=== PATIENT | male | born 1965 | race African-American/Black ===

== ENCOUNTER 2019-11-16 22:13 | Emergency (ER) | payer BC, SELFPAY ==
[2019-11-16] MEDS ORDERED: Dexamethasone 10 MG/ML VIAL ONE ×2 (22:37→22:38)
[2019-11-16] MEDS ORDERED: Ketorolac Tromethamine 30 MG/ML VIAL ONE (22:37)
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
== END 2019-11-16 23:45 | disposition home or self-care (01) ==
LOC: ERS 22:13
DX: S19.9XXA Unspecified injury of neck, initial encounter (principal); Y04.8XXA Assault by other bodily force, initial encounter
CPT/HCPCS: 70450; 70498; 96374; J1100; J1885

== ENCOUNTER 2020-10-27 10:16 | Emergency (ER) | payer OTHER, SELFPAY ==
[2020-10-27] MEDS ORDERED: Ketorolac Tromethamine 30 MG/ML VIAL ONE (10:41)
[2020-10-27] MEDS ORDERED: Dexamethasone 4 MG TAB ONE (10:41)
[2020-10-27 17:28] LABS: SARS-CoV-2 PCR by NAA DETECTED (NotDetected)
== END 2020-10-27 11:08 | disposition home or self-care (01) ==
LOC: ERS 10:16
DX: U07.1 COVID-19 (principal); J45.901 Unspecified asthma with (acute) exacerbation; J02.9 Acute pharyngitis, unspecified
CPT/HCPCS: 96372; 99284; J1885; J8540; U0003; U0005

== ENCOUNTER 2020-10-29 07:24 | Emergency (ER) | payer SELFPAY ==
[2020-10-29] MEDS ORDERED: Ketorolac Tromethamine 30 MG/ML VIAL ONE (07:45)
== END 2020-10-29 08:25 | disposition home or self-care (01) ==
LOC: ERS 07:24
DX: U07.1 COVID-19 (principal)
CPT/HCPCS: 96372; 96374; J0500; J1885

== ENCOUNTER 2020-11-01 20:09 | Inpatient (IN) | payer SELFPAY ==
[2020-11-01] MEDS ORDERED: Dexamethasone 10 MG/ML VIAL ONE (21:46)
[2020-11-01 21:47] LABS: Hemoglobin 15.8 g/dL (14.0-18.0); Mean Corpuscular Hemoglobin 28.2 pg (27.0-31.0); Mean Corpuscular Volume 88.2 fL (78.0-98.0); White Blood Cell (WBC) Count 6.8 thou/uL (4.8-10.8)
[2020-11-01 21:48] LABS: #Monocytes 0.3 thou/uL (0.11-0.59); #Neutrophils 5.5 thou/uL (1.40-6.50); %Basophils 0.2 % (0.0-1.0); %Eosinophils 0.1 % (0.0-10.0); %Monocytes 4.4 % (0.0-10.0); %Neutrophils 80.3 % (42.0-75.0); Mean Platelet Volume 6.3 fL (7.4-10.4); Platelet Count 249 thou/uL (130-400)
[2020-11-01 22:28] LABS: Albumin 3.4 g/dL (3.5-5.0); Anion Gap 14 mmol/L (10-20); BUN (Urea Nitrogen) 14 mg/dL (8.4-25.7); Bilirubin, Total 0.6 mg/dL (0.2-1.2); Calc. Creatinine Clearance 0 mL/min (70-130); Calcium 8.2 mg/dL (7.8-10.44); Carbon Dioxide 24 mmol/L (22-29); Chloride 100 mmol/L (98-107); Globulin 3.3 g/dL (2.4-3.5); Glucose 111 mg/dL (70-105); Potassium 4.1 mmol/L (3.5-5.1); Protein, Total 6.7 g/dL (6.0-8.3); Sodium 134 mmol/L (136-145)
[2020-11-01 22:29] LABS: ALT (SGPT) 92 U/L (8-55); AST (SGOT) 83 U/L (5-34); Alkaline Phosphatase 29 U/L (40-110)
[2020-11-01] MEDS ORDERED: Ketorolac Tromethamine 30 MG/ML VIAL ONE (23:09)
[2020-11-02] MEDS ORDERED: Ondansetron ODT 4 MG TAB PO PRN (07:18)
[2020-11-02] MEDS ORDERED: Ondansetron PF 4 MG/2 ML Vial IVP PRN (07:18)
[2020-11-02] MEDS ORDERED: Acetaminophen 325 MG TAB PO PRN (07:18)
[2020-11-02 09:53] VITALS: BMI 30.3
[2020-11-02] MEDS ORDERED: Dexamethasone 10 MG in Sodium Chloride 0.9% 50 ML IVPB SCH (10:21)
[2020-11-02] MEDS ORDERED: Thiamine 100 MG TAB PO SCH (10:30)
[2020-11-02] MEDS ORDERED: Enoxaparin Sodium 40 MG/0.4 ML SYRINGE SC SCH (11:00)
[2020-11-02] MEDS: Dexamethasone 10 MG/ML VIAL SLOW IVP SCH (11:05)
[2020-11-02 11:06] LABS: Lactic Acid 1.1 mmol/L (0.5-2.2)
[2020-11-02] MEDS: Cholecalciferol 1,000 UNITS (25 MCG) TAB PO SCH (11:06)
[2020-11-02] MEDS: Ascorbic Acid 500 mg Chewable Tablet PO SCH (11:06)
[2020-11-02] MEDS: Zinc Sulfate 220 MG CAP PO SCH (11:06)
[2020-11-02 11:11] LABS: CRP (Inflammatory) 10.78 mg/dL (= or < 0.5)
[2020-11-02] MEDS ORDERED: REMDESIVIR 200 MG in Sodium Chloride 0.9% 250 ML 210 ML IV SCH (12:30)
[2020-11-02] MEDS: Famotidine/PF 20 mg/2ml Vial SLOW IVP SCH (20:36)
[2020-11-03] MEDS: Cholecalciferol 1,000 UNITS (25 MCG) TAB PO SCH (08:03)
[2020-11-03] MEDS: Zinc Sulfate 220 MG CAP PO SCH (08:03)
[2020-11-03] MEDS: Ascorbic Acid 500 mg Chewable Tablet PO SCH (08:03)
[2020-11-03] MEDS: Enoxaparin Sodium 40 MG/0.4 ML SYRINGE SC SCH (08:03)
[2020-11-03] MEDS: Famotidine/PF 20 mg/2ml Vial SLOW IVP SCH ×2 (08:03→21:16)
[2020-11-03] MEDS: Dexamethasone 10 MG/ML VIAL SLOW IVP SCH (08:03)
[2020-11-03] MEDS: REMDESIVIR 100 MG in Sodium Chloride 0.9% 250 ML 230 ML IV SCH (08:04)
[2020-11-03] MEDS: Thiamine 100 MG TAB PO SCH (08:04)
[2020-11-04] MEDS: Famotidine/PF 20 mg/2ml Vial SLOW IVP SCH ×2 (08:45→20:34)
[2020-11-04] MEDS: Zinc Sulfate 220 MG CAP PO SCH (08:45)
[2020-11-04] MEDS: Cholecalciferol 1,000 UNITS (25 MCG) TAB PO SCH (08:45)
[2020-11-04] MEDS: Thiamine 100 MG TAB PO SCH (08:45)
[2020-11-04] MEDS: Enoxaparin Sodium 40 MG/0.4 ML SYRINGE SC SCH (08:45)
[2020-11-04] MEDS: Ascorbic Acid 500 mg Chewable Tablet PO SCH (08:45)
[2020-11-04] MEDS: REMDESIVIR 100 MG in Sodium Chloride 0.9% 250 ML 230 ML IV SCH (08:46)
[2020-11-04] MEDS: Dexamethasone 10 MG/ML VIAL SLOW IVP SCH (08:46)
[2020-11-04] MEDS ORDERED: Ondansetron PF 4 MG/2 ML Vial IVP PRN (11:05)
[2020-11-05 08:36] LABS: ALT (SGPT) 151 U/L (8-55); AST (SGOT) 53 U/L (5-34); Albumin 3.4 g/dL (3.5-5.0); Alkaline Phosphatase 36 U/L (40-110); Anion Gap 15 mmol/L (10-20); BUN (Urea Nitrogen) 18 mg/dL (8.4-25.7); Bilirubin, Total 0.7 mg/dL (0.2-1.2); CRP (Inflammatory) 2.65 mg/dL (= or < 0.5); Calc. Creatinine Clearance 103 mL/min (70-130); Calcium 8.6 mg/dL (7.8-10.44); Carbon Dioxide 24 mmol/L (22-29); Chloride 97 mmol/L (98-107); Globulin 3.3 g/dL (2.4-3.5); Glucose 91 mg/dL (70-105); Potassium 4.5 mmol/L (3.5-5.1); Protein, Total 6.7 g/dL (6.0-8.3); Sodium 131 mmol/L (136-145)
[2020-11-05] MEDS: REMDESIVIR 100 MG in Sodium Chloride 0.9% 250 ML 230 ML IV SCH (09:02)
[2020-11-05] MEDS: Dexamethasone 10 MG/ML VIAL SLOW IVP SCH (09:02)
[2020-11-05] MEDS: Famotidine/PF 20 mg/2ml Vial SLOW IVP SCH ×2 (09:02→21:11)
[2020-11-05] MEDS: Zinc Sulfate 220 MG CAP PO SCH (09:03)
[2020-11-05] MEDS: Ascorbic Acid 500 mg Chewable Tablet PO SCH (09:03)
[2020-11-05] MEDS: Thiamine 100 MG TAB PO SCH (09:03)
[2020-11-05] MEDS: Cholecalciferol 1,000 UNITS (25 MCG) TAB PO SCH (09:03)
[2020-11-05] MEDS: Enoxaparin Sodium 40 MG/0.4 ML SYRINGE SC SCH (09:04)
[2020-11-05] MEDS ORDERED: Iopamidol-370 76% 500 ML 1 ML ONE (11:41)
[2020-11-06] MEDS ORDERED: Acetaminophen 325 MG TAB PO PRN (00:26)
[2020-11-06] MEDS: Benzonatate 100 MG CAP PO PRN ×2 (00:49→20:48)
[2020-11-06] MEDS: Famotidine/PF 20 mg/2ml Vial SLOW IVP SCH ×2 (08:55→20:49)
[2020-11-06] MEDS: REMDESIVIR 100 MG in Sodium Chloride 0.9% 250 ML 230 ML IV SCH (08:55)
[2020-11-06] MEDS: Cholecalciferol 1,000 UNITS (25 MCG) TAB PO SCH (08:56)
[2020-11-06] MEDS: Enoxaparin Sodium 40 MG/0.4 ML SYRINGE SC SCH (08:56)
[2020-11-06] MEDS: Zinc Sulfate 220 MG CAP PO SCH (08:56)
[2020-11-06] MEDS: Ascorbic Acid 500 mg Chewable Tablet PO SCH (08:56)
[2020-11-06] MEDS: guaiFENesin/DM ER PO SCH ×2 (08:56→20:48)
[2020-11-06] MEDS: Thiamine 100 MG TAB PO SCH (08:56)
[2020-11-06] MEDS: Dexamethasone 10 MG/ML VIAL SLOW IVP SCH (08:56)
[2020-11-06 12:11] LABS: ALT (SGPT) 115 U/L (8-55); AST (SGOT) 41 U/L (5-34); Albumin 3.3 g/dL (3.5-5.0); Alkaline Phosphatase 36 U/L (40-110); Anion Gap 14 mmol/L (10-20); BUN (Urea Nitrogen) 20 mg/dL (8.4-25.7); Bilirubin, Total 0.7 mg/dL (0.2-1.2); CRP (Inflammatory) 5.02 mg/dL (= or < 0.5); Calc. Creatinine Clearance 112 mL/min (70-130); Calcium 8.5 mg/dL (7.8-10.44); Carbon Dioxide 23 mmol/L (22-29); Chloride 99 mmol/L (98-107); Globulin 3.2 g/dL (2.4-3.5); Glucose 109 mg/dL (70-105); Potassium 4.5 mmol/L (3.5-5.1); Protein, Total 6.5 g/dL (6.0-8.3); Sodium 131 mmol/L (136-145)
[2020-11-07] MEDS: Famotidine/PF 20 mg/2ml Vial SLOW IVP SCH ×2 (08:47→20:25)
[2020-11-07] MEDS: Dexamethasone 10 MG/ML VIAL SLOW IVP SCH (08:47)
[2020-11-07] MEDS: Ascorbic Acid 500 mg Chewable Tablet PO SCH (08:47)
[2020-11-07] MEDS: Cholecalciferol 1,000 UNITS (25 MCG) TAB PO SCH (08:48)
[2020-11-07] MEDS: Zinc Sulfate 220 MG CAP PO SCH (08:48)
[2020-11-07] MEDS: guaiFENesin/DM ER PO SCH ×2 (08:48→20:25)
[2020-11-07] MEDS: Thiamine 100 MG TAB PO SCH (08:48)
[2020-11-07] MEDS: Enoxaparin Sodium 40 MG/0.4 ML SYRINGE SC SCH (08:49)
[2020-11-08 07:50] LABS: ALT (SGPT) 70 U/L (8-55); AST (SGOT) 23 U/L (5-34); Albumin 3.1 g/dL (3.5-5.0); Alkaline Phosphatase 35 U/L (40-110); Anion Gap 14 mmol/L (10-20); BUN (Urea Nitrogen) 21 mg/dL (8.4-25.7); Bilirubin, Total 0.6 mg/dL (0.2-1.2); Calc. Creatinine Clearance 108 mL/min (70-130); Calcium 8.4 mg/dL (7.8-10.44); Carbon Dioxide 21 mmol/L (22-29); Chloride 100 mmol/L (98-107); Globulin 3.2 g/dL (2.4-3.5); Glucose 87 mg/dL (70-105); Potassium 4.9 mmol/L (3.5-5.1); Protein, Total 6.3 g/dL (6.0-8.3); Sodium 130 mmol/L (136-145)
[2020-11-08 08:24] VITALS: BP 129/85; TEMP 97.4
[2020-11-08] MEDS: Dexamethasone 10 MG/ML VIAL SLOW IVP SCH (11:46)
[2020-11-08] MEDS: Enoxaparin Sodium 40 MG/0.4 ML SYRINGE SC SCH (11:46)
[2020-11-08] MEDS: Ascorbic Acid 500 mg Chewable Tablet PO SCH (11:46)
[2020-11-08] MEDS: Famotidine/PF 20 mg/2ml Vial SLOW IVP SCH (11:46)
[2020-11-08] MEDS: Cholecalciferol 1,000 UNITS (25 MCG) TAB PO SCH (11:46)
[2020-11-08] MEDS: Zinc Sulfate 220 MG CAP PO SCH (11:47)
[2020-11-08] MEDS: guaiFENesin/DM ER PO SCH (11:47)
[2020-11-08] MEDS: Thiamine 100 MG TAB PO SCH (11:47)
== END 2020-11-08 14:39 | disposition home or self-care (01) | DRG 177 ==
LOC: ERS 20:09 → T4-B 11-02 00:49
PROVIDERS: ADMIT Internal Medicine; ATTEND Internal Medicine
PROC: XW033E5 Introduction of Remdesivir Anti-infective into Peripheral Vein, Percutaneous Approach, New Technology Group 5 (ICD-10-PCS; principal; 2020-11-02)
PROC: 8E0ZXY6 Isolation (ICD-10-PCS; 2020-11-02)
DX: U07.1 COVID-19 (principal); J12.82 Pneumonia due to coronavirus disease 2019; J96.01 Acute respiratory failure with hypoxia; R10.9 Unspecified abdominal pain; Z79.899 Other long term (current) drug therapy
CPT/HCPCS: 36415; 71045; 71275; 74018; 80053; 82550; 83605; 83690; 84484; 85025; 85379; 86140; 93005; 96374; 96375; J1100; J1650; J1885; J7050; Q9967; S0028

== ENCOUNTER 2021-06-08 23:03 | Emergency (ER) | payer SELFPAY ==
[2021-06-08] MEDS ORDERED: Meclizine HCl 25 MG TAB ONE (23:22)
[2021-06-08] MEDS ORDERED: Ondansetron PF 4 MG/2 ML Vial ONE (23:22)
[2021-06-08 23:52] LABS: #Basophils 0.1 thou/uL (0.0-0.2); #Eosinphils 0.1 thou/uL (0.0-0.7); #Monocytes 0.7 thou/uL (0.11-0.59); #Neutrophils 3.8 thou/uL (1.40-6.50); %Basophils 1.2 % (0.0-1.0); %Eosinophils 1.7 % (0.0-10.0); %Lymphocytes 30.3 % (21.0-51.0); %Monocytes 10.1 % (0.0-10.0); %Neutrophils 56.8 % (42.0-75.0); Hemoglobin 14.7 g/dL (14.0-18.0); Mean Corpuscular HGB CONC 33.3 g/dL (32.0-36.0); Mean Corpuscular Hemoglobin 30.3 pg (27.0-31.0); Mean Corpuscular Volume 90.9 fL (78.0-98.0); Mean Platelet Volume 6.5 fL (7.4-10.4); Platelet Count 241 thou/uL (130-400); RBC Distribution Width 12.6 % (11.5-14.5); Red Blood Cell (RBC) Count 4.84 mill/uL (4.70-6.10); White Blood Cell (WBC) Count 6.7 thou/uL (4.8-10.8)
[2021-06-08] MEDS ORDERED: cefTRIAXone\\ROCEPHIN 500 MG VIAL ONE (23:57)
[2021-06-09 00:13] LABS: ALT (SGPT) 24 U/L (8-55); AST (SGOT) 34 U/L (5-34); Albumin 4.1 g/dL (3.5-5.0); Alkaline Phosphatase 30 U/L (40-110); Anion Gap 12 mmol/L (10-20); BUN (Urea Nitrogen) 7 mg/dL (8.4-25.7); Bilirubin, Total 0.6 mg/dL (0.2-1.2); Calc. Creatinine Clearance 0 mL/min (70-130); Carbon Dioxide 22 mmol/L (22-29); Chloride 105 mmol/L (98-107); Globulin 2.5 g/dL (2.4-3.5); Glucose 117 mg/dL (70-105); Potassium 3.5 mmol/L (3.5-5.1); Protein, Total 6.6 g/dL (6.0-8.3); Sodium 135 mmol/L (136-145)
[2021-06-09 00:39] LABS: Bilirubin Negative (Negative); Blood, Urine Negative (Negative); Clarity Clear (Clear); Glucose, Urine (Dipstick) Normal (Negative); Ketone, Urine Negative (Negative); Leukocyte Negative Leu/uL (Negative); Nitrite Negative (Negative); Protein, Urine (Dipstick) Negative (Neg-Trace); Specific Gravity, Urine 1.007 (1.002-1.036); Urobilinogen Normal mg/dL (Less than 2)
[2021-06-09] MEDS ORDERED: Azithromycin 250 MG TAB ONE (01:42)
[2021-06-09 15:43] LABS: Chlam.trachomatis by PCR,Urine Not Detected (NotDetected)
== END 2021-06-09 01:49 | disposition home or self-care (01) ==
LOC: ERS 23:03
DX: N34.2 Other urethritis (principal); R42 Dizziness and giddiness; R29.700 NIHSS score 0; Z86.73 Personal history of transient ischemic attack (TIA), and cerebral infarction without residual deficits; Z79.01 Long term (current) use of anticoagulants
CPT/HCPCS: 80053; 81003; 84484; 85025; 87491; 87591; 87804; 93005; 96374; 96375; J0696; J2405